=== PATIENT | female | born 1995 | race Caucasian/White ===

== ENCOUNTER → 2024-12-07 06:51 | Outpatient (REF) | payer BC, SELFPAY | LOC: PNTC 06:51 | PROVIDERS: ATTENDING PHYSICIAN Student in an Organized Health Care Education/Training Program | DX: Z36.82 Encounter for antenatal screening for nuchal translucency (principal); Z36.0 Encounter for antenatal screening for chromosomal anomalies | CPT/HCPCS: 36415; 76801; 76813 ==

== ENCOUNTER → 2024-12-28 06:58 | Outpatient (REF) | payer BC, SELFPAY | LOC: PNTC 06:58 | PROVIDERS: ATTENDING PHYSICIAN Obstetrics & Gynecology | DX: O99.210 Obesity complicating pregnancy, unspecified trimester (principal) | CPT/HCPCS: 76805 ==

== ENCOUNTER → 2025-01-25 06:58 | Outpatient (REF) | payer BC, SELFPAY | LOC: PNTC 06:58 | PROVIDERS: ATTENDING PHYSICIAN Obstetrics & Gynecology | DX: O99.212 Obesity complicating pregnancy, second trimester (principal); Z36.3 Encounter for antenatal screening for malformations; Z36.86 Encounter for antenatal screening for cervical length | CPT/HCPCS: 76811; 76817 ==

== ENCOUNTER 2025-02-22 12:03 | Emergency (ER) | payer BC, SELFPAY ==
[2025-02-22 12:28] VITALS: BP 122/85
[2025-02-22 12:57] LABS: Hematocrit 34.9 % (37.0-47.0); Hemoglobin 12.3 g/dL (12.0-16.0); Mean Corp Hgb Conc. 35.2 g/dL (33.0-37.0); Mean Corpuscular Volume 86.0 fL (81.0-99.0); Nucleated Red Blood Cells % 0 %; Platelet Count 288 10^3/uL (130-400); Red Cell Dist. Width 13.6 % (11.5-14.5)
[2025-02-22 12:59] LABS: Urine Character Clear (Clear)
[2025-02-22 13:05] LABS: ALT (SGPT) 12 U/L (0-35); AST (SGOT) 16 U/L (14-36); Albumin 3.9 g/dl (3.5-5.0); Alkaline Phosphatase 78 U/L (38-126); Blood Urea Nitrogen 3 mg/dl (7-17); Calcium 9.5 mg/dl (8.4-10.2); Carbon Dioxide 22 mmol/L (22-30); Chloride 105 mmol/L (98-107); Glucose 90 mg/dl (70-99); Lipase 36 U/L (23-300); Potassium 4.1 mmol/L (3.5-5.1); Sodium 133 mmol/L (135-145); Total Protein 7.1 g/dl (6.3-8.2); eGFR > 60.00
[2025-02-22 13:40] LABS: Urine Squamous Cell >30 /LPF (Few)
--- NOTE | 2025-02-22 15:08 | ED.GENMED ---
History of Present Illness
<Sd Aguilera MD, Resident - Last Filed: 02/22/25 21:51>
General
Chief Complaint: Abdominal Pain
Time Seen by Provider: 02/22/25 15:07
History of Present Illness
History of Present Illness:
29 yo F G1 24 weeks p/w diffuse abdominal pain since 8pm last night that is all over, does not spread. describes it as sharp, 'contraction-like' pain that comes and goes under a constant baseline with intermittent spikes. She feels that the baseline
pain has been getting worse and she woke up at 3am from the pain to call [facility] emergency line.
if she lies on the side, she feels that it is more painful on that edge, and if she lies down supine, more pain along lower pelvis. no alleviating factors. Not related to exertion.
She denies any vaginal discharge/bleeding. She presented to Dr. Dvual (obgyn) today who did US doppler and said that 'baby is fine' and asked to present for evaluating appendicitis.
deneis n/v changes in stool. denies diarrhea/constipation. denies fevers/chills. denies chest pain/dyspnea/headache. denies trauma. denies dysuria.
no PMH
PSH cholecystectomy 2022
Meds: baby aspirin, and calcium
NKDA
social hx: unremarkable
Past History
<Sd Aguilera MD, Resident - Last Filed: 02/22/25 21:51>
Past History
ED Past Medical History: None
ED Past Surgical History: Cholecystectomy
Social History
Tobacco: Non-smoker
Alcohol: None
Drug: None
Personal:
Living: with family
Review of Systems
<Sd Aguilera MD, Resident - Last Filed: 02/22/25 21:51>
Review of Systems
Constitutional: Reports no symptoms
EENT: Reports no symptoms
Respiratory: Reports no symptoms
Cardiac: Reports no symptoms
ABD/GI: Reports abdominal pain (diffuse, all over)
: Reports no symptoms
Musculoskeletal: Reports no symptoms
Phy Exam
<Sd Aguilera MD, Resident - Last Filed: 02/22/25 21:51>
Physical Exam
Physical Exam:
VS: BP 120s/80, HR 103, T 98.1, 98%
General: no acute distress
CV: no murmurs on my exam
Pulm: CTAB
Abd: tenderness to palpation along left side, no guarding
MSK: trace to 1+ lower extremity edema on my exam
Neuro: AOx3, nonfocal
Course
<Sd Aguilera MD, Resident - Last Filed: 02/22/25 21:51>
Orders/Labs/Results
Orders:
Orders
02/22/25 12:41
Complete Blood Count/With Diff Urgent
Comprehensive Metabolic Panel Urgent
Lipase Urgent
Urinalysis Reflex To Culture Urgent
Date Specimen was Collected: 02/22/25
Time Specimen was Collected: 12:32
Urine Microscopic Reflex Cult Urgent
Urine Culture Urgent
ANGELA Source: U
Specimen Description:
Date Specimen was Collected: 02/22/25
Time Specimen was Collected: 12:32
02/22/25 16:39
MR Abdomen Without Contrast Urgent
Comment:
Reason For Exam: abdominal pain, , possible appendicitis
Recent pill cam endoscopy?: No
02/22/25 16:43
Acetaminophen [Tylenol] 650 mg PO NOW ONE
02/22/25 19:03
US Limited Urgent
Reason For Exam: , MR abdomen=adnexal cyst, abdominal pain
Abnormal Lab Results
02/22/25
12:41
WBC 13.4 H 10^3/uL
(4.8-10.8)
RBC 4.06 L 10^6/uL
(4.20-5.40)
Hct 34.9 L %
(37.0-47.0)
Abs Immat Gran (auto) 0.1 H 10^3/uL
(0-0.05)
Absolute Neuts (auto) 10.0 H 10^3/uL
(1.4-6.5)
Absolute Monos (auto) 0.7 H 10^3/uL
(0.1-0.6)
Lymphocytes % 18.8 L %
(20.5-51.1)
Sodium 133 L mmol/L
(135-145)
BUN 3 L mg/dl
(7-17)
Creatinine 0.4 L mg/dL
(0.6-1.0)
Leukocyte Esterase Rfl 1+ A
(Negative)
Urine RBC 3-6 A /HPF
(0-2)
Urine Bacteria (Reflex) Moderate A
(Negative)
Urine Albumin (Reflex) 1+ A
(Neg - Trace)
02/22/25 12:41
02/22/25 12:41
Vital Signs
Initial and Last Documented VS:
Initial Vital Signs
Temp Pulse Resp BP Pulse Ox
98.1 F 103 20 122/85 98
02/22/25 12:28 02/22/25 12:28 02/22/25 12:28 02/22/25 12:28 02/22/25 12:28
Last Documented Vital Signs
Temp Pulse Resp BP Pulse Ox
98.1 F 84 20 129/75 98
02/22/25 12:28 02/22/25 18:00 02/22/25 18:00 02/22/25 18:00 02/22/25 18:00
<Saroj Munoz MD - Last Filed: 02/22/25 23:57>
Orders/Labs/Results
Orders:
Orders
02/22/25 12:41
Complete Blood Count/With Diff Urgent
Comprehensive Metabolic Panel Urgent
Lipase Urgent
Urinalysis Reflex To Culture Urgent
Date Specimen was Collected: 02/22/25
Time Specimen was Collected: 12:32
Urine Microscopic Reflex Cult Urgent
Urine Culture Urgent
ANGELA Source: U
Specimen Description:
Date Specimen was Collected: 02/22/25
Time Specimen was Collected: 12:32
02/22/25 16:39
MR Abdomen Without Contrast Urgent
Comment:
Reason For Exam: abdominal pain, , possible appendicitis
Recent pill cam endoscopy?: No
02/22/25 16:43
Acetaminophen [Tylenol] 650 mg PO NOW ONE
02/22/25 19:03
US Limited Urgent
Reason For Exam: , MR abdomen=adnexal cyst, abdominal pain
Abnormal Lab Results
02/22/25
12:41
WBC 13.4 H 10^3/uL
(4.8-10.8)
RBC 4.06 L 10^6/uL
(4.20-5.40)
Hct 34.9 L %
(37.0-47.0)
Abs Immat Gran (auto) 0.1 H 10^3/uL
(0-0.05)
Absolute Neuts (auto) 10.0 H 10^3/uL
(1.4-6.5)
Absolute Monos (auto) 0.7 H 10^3/uL
(0.1-0.6)
Lymphocytes % 18.8 L %
(20.5-51.1)
Sodium 133 L mmol/L
(135-145)
BUN 3 L mg/dl
(7-17)
Creatinine 0.4 L mg/dL
(0.6-1.0)
Leukocyte Esterase Rfl 1+ A
(Negative)
Urine RBC 3-6 A /HPF
(0-2)
Urine Bacteria (Reflex) Moderate A
(Negative)
Urine Albumin (Reflex) 1+ A
(Neg - Trace)
02/22/25 12:41
02/22/25 12:41
Vital Signs
Initial and Last Documented VS:
Initial Vital Signs
Temp Pulse Resp BP Pulse Ox
98.1 F 103 20 122/85 98
02/22/25 12:28 02/22/25 12:28 02/22/25 12:28 02/22/25 12:28 02/22/25 12:28
Last Documented Vital Signs
Temp Pulse Resp BP Pulse Ox
98.1 F 84 20 129/75 98
02/22/25 12:28 02/22/25 18:00 02/22/25 18:00 02/22/25 18:00 02/22/25 18:00
<Sd Aguilera MD, Resident - Last Filed: 02/22/25 21:51>
MDM/Problems Addressed
Differential Diagnosis Includes:
appendicitis, PUD, constipation, pancreatitis
round ligament pain, torsion (ovarian/adnexal), PID, amniotic infection
UTI, nephrolithiasis
MSK strain
MDM/Problems Addressed:
WBC is elevated to 13.3 but this can be typical in , afebrile, HPI does not suggest infectious process at this time (PID, amniotic infection).
BMP largely within normal limits
Lipase 36 points away from pancreatitis
LFTs wnl
UA likely contaminated, but she denies dysuria
HPI does not appear to be colicky and radiating down to groin, on my interview.
Plan:
After discussion with on-call radiologist, MR abdomen without contrast ordered to evaluate
tylenol 650mg for pain control
IV morphine offered, but patient preferred not to take morphine
MR abdomen showed:
IMPRESSION:
2.4 cm lesion in the right lower quadrant that appears to be located in the region of the right adnexa, possibly representing a complex cyst, although evaluation is limited on this noncontrast exam. Suggest a follow-up pelvic ultrasound for more
detailed evaluation.
Trace fluid in the right paracolic gutter, but the appendix is nondilated and without evidence for wall thickening, not considered suspicious for acute appendicitis by MRI.
After discussion with Dr. Melara, [facility] [employer], since patient reports that the pain has not improved, she recommended doing the pelvic U/S in ED.
<Sd Aguilera MD, Resident - Last Filed: 02/22/25 21:51>
*Pulse Oximetry
SaO2: 98
Oxygen Mode of Delivery: Room air
Patient hypoxic: no
*Critical Care Note
Total Time (30-74mins, 75-104mins- exclusive of procedures): Not Applicable
<Sd Aguilera MD, Resident - Last Filed: 02/22/25 21:51>
Update Note
Update Note:
Pelvic US: CONCLUSION:
1. Single, viable intrauterine . heart rate: 160 BPM.
2. The ovaries are not visualized on this examination.
After discussion with Dr. Melara, she is okay with dishcarging the patient.
ED Attending Note
<Sd Aguilera MD, Resident - Last Filed: 02/22/25 21:51>
-
Portions of this chart may have been created with voice recognition software.� Occasional wrong word or��sound alike� substitutions may have occurred due to the inherent limitations of voice recognition software.
<Saroj Munoz MD - Last Filed: 02/22/25 23:57>
ED Attending Note
Patient seen and examined by attending physician: Yes
ED Attending Note:
Patient G1, P0, currently 24 weeks , presents to ED from her [employer]'s office secondary to worsening left-sided abdominal pain since last night, which started shortly after having dinner. Denies fever or chills. Denies vomiting or
diarrhea. Abdominal pain described as crampy, nonradiating, worse with certain position, improved when laying on her left side. Denies trauma. Denies vaginal bleeding. Denies loss of appetite. Denies recent illness. Denies sick contact.
Physical Exam
General: mild painful distress, not acutely ill. afebrile
Head: nc/at. eomi
Neck: supple. normal range of motion
Abdomen: normal bowel sounds. no distention. mild left flank/LLQ tenderness to palpation
Neuro: alert and oriented x 3. no focal neurological deficits
Skin: no rash
Psychiatric: well kept. interactive and cooperative
Extremities: no edema. no calf tenderness.
MRI abdomen report reviewed and discussed with on-call [employer] physician, Dr. Melara, who requests pelvic ultrasound, with ongoing abdominal pain. Pelvic ultrasound report reviewed and discussed with patient and Dr. Melara. Patient will be
discharged home at this time, and will follow-up in the office for reevaluation this week. Patient otherwise is afebrile, hemodynamically stable, appears comfortable, at time of discharge, to the care of her family.
Discharge Plan
Departure
Patient Disposition: Home (Routine Discharge)
Date of Disposition: 02/22/25
Time of Disposition: 21:44
Patient with high blood pressure during this ER visit?: Yes
Condition: Good
Discharge Problem:
Abdominal pain
Prescriptions:
No Action
norethindrone-e.estradiol-iron [03/29 (28)] 1 mg-20 mcg (21)/75 mg (7) tablet
1 tab PO HS
acetaminophen [acetaminophen] 325 mg tablet
650 mg PO Q4HPRN PRN (Reason: mild pain) Qty: 1 0RF
ibuprofen 200 mg tablet
400 - 600 mg PO Q6HPRN PRN (Reason: moderate pain) Qty: 1 0RF
oxycodone 5 mg tablet
5 mg PO Q4HPRN PRN (Reason: breakthrough/severe pain) Qty: 15 0RF
Referrals:
Jagdeep Mishra DO [Family Provider, Family Practice]
Activity Restrictions/Additional Instructions:
Please follow-up with your outpatient ObGyn for further follow-up
You make tylenol for pain control.
Interventions
Interventions:
*General Assessment Last Done: 02/22/25 17:00
*Neglect/Abuse Screening Last Done: 02/22/25 17:00
*ED COVID-19 Vaccine History Last Done: 02/22/25 17:00
*ED Influenza Vaccine History Last Done: 02/22/25 17:00
[facility] Risk Assessment Tool Last Done: 02/22/25 19:23
*Risk Screen - Suicide (C-SSRS) Last Done: 02/22/25 17:00
*Nursing Disposition Last Done: 02/22/25 22:42
QW-Qwpxtu-Oofibztaco Assessment Last Done: 02/22/25 17:00
Discharge Date and Time
Discharge Date/Time: 02/22/25 22:43
Print Language: BELARUSIAN
[2025-02-22] MEDS: TYLENOL 650 MG PO (16:50)
[2025-02-22 18:00] VITALS: BP 129/75
== END 2025-02-22 22:43 | disposition home or self-care (01) ==
LOC: EMR 12:03
PROVIDERS: Physician Assistant Medical; EMERGENCY PHYSICIAN Emergency Medicine; FAMILY PHYSICIAN Family Medicine
DX: O26.892 Other specified pregnancy related conditions, second trimester (principal); R10.84 Generalized abdominal pain; Z90.49 Acquired absence of other specified parts of digestive tract; Z3A.24 24 weeks gestation of pregnancy
CPT/HCPCS: 99284; 74181; 76815; 80053; 81003; 81015; 83690; 85025; 87086

== ENCOUNTER → 2025-03-08 06:57 | Outpatient (REF) | payer BC, SELFPAY | LOC: PNTC 06:57 | PROVIDERS: ATTENDING PHYSICIAN Obstetrics & Gynecology | DX: O99.213 Obesity complicating pregnancy, third trimester (principal) | CPT/HCPCS: 76816 ==